=== PATIENT | male | born 1975 | race Hispanic/Latino ===

== ENCOUNTER → 2017-12-16 | Outpatient (CLI) | payer BC | END | disposition home or self-care (01) | LOC: RAH 13:37 | PROVIDERS: ATTEND Orthopaedic Surgery | DX: M19.012 Primary osteoarthritis, left shoulder (principal); M19.011 Primary osteoarthritis, right shoulder; M75.42 Impingement syndrome of left shoulder; M75.41 Impingement syndrome of right shoulder | CPT/HCPCS: 73221 ==